=== PATIENT | male | born 1950 | race Caucasian/White ===

== ENCOUNTER 2018-03-01 14:53 | Emergency (ER) | payer OTHER, SELFPAY ==
[~2018-03-01] VITALS: Ht 170.2 cm; Wt 64.0 kg
[2018-03-01 14:59] VITALS: BP 155/69
[2018-03-01] MEDS ORDERED: [UNRECOGNIZED DRUG - REMARK] (15:06)
[2018-03-01] MEDS ORDERED: metformin (15:06)
[2018-03-01] MEDS ORDERED: SODIUM CHLORIDE 0.9% 1,000 ML IV ONE (15:10)
[2018-03-01] MEDS ORDERED: ONDANSETRON 2MG/ML, 2ML ONE (15:13)
[2018-03-01] MEDS ORDERED: SODIUM CHLORIDE FLUSH 10ML SYR IVF ONE (15:30)
[2018-03-01] MEDS ORDERED: ONDANSETRON 2MG/ML, 2ML IVPush ONE (15:30)
[2018-03-01] MEDS ORDERED: SODIUM CHLORIDE 0.9% 1,000ML IVBOLUS ONE (15:30)
[2018-03-01] MEDS ORDERED: PLEASE ENTER ALLERGIES MC SCH (15:30)
[2018-03-01 15:43] LABS: MICROSCOPIC NOT IND
[2018-03-01 15:46] LABS: CULTURE INDICATED? NO
[2018-03-01 15:49] LABS: BASOPHILS # (AUTO) 0.01 x10^3/uL (0-0.1); BASOPHILS % (AUTO) 0 % (0-1); EOSINOPHILS # (AUTO) 0.05 x10^3/uL (0-0.4); EOSINOPHILS % (AUTO) 1 % (1-7); LYMPHOCYTES # (AUTO) 0.36 x10^3/uL (1-3.4); LYMPHOCYTES % (AUTO) 8 % (22-44); MD NO; MEAN CORPUSCULAR HEMOGLOBIN 28.2 pg (27.5-34.5); MEAN CORPUSCULAR HGB CONC 32.3 g/dL (33.2-36.2); MEAN CORPUSCULAR VOLUME 87.4 fL (81-97); MEAN PLATELET VOLUME 9.2 fL (7.4-10.4); MONOCYTES # (AUTO) 0.45 x10^3/uL (0.2-0.8); MONOCYTES % (AUTO) 10 % (2-9); NEUTROPHILS % (AUTO) 81 % (42-75); PLATELET COUNT 108 x10^3/uL (130-400); RED CELL DISTRIBUTION WIDTH 17.1 % (9.4-14.8)
[2018-03-01 16:04] LABS: CHLORIDE 104 mmol/L (98-107)
[2018-03-01 16:05] LABS: ALBUMIN 2.3 g/dL (3.4-5.0); ANION GAP 8 mmol/L (5-15); CALCIUM 7.4 mg/dL (8.5-10.1)
[2018-03-01 16:07] LABS: ALANINE AMINOTRANSFERASE 36 U/L (12-78); ALKALINE PHOSPHATASE 112 U/L (45-117); TOTAL PROTEIN 7.2 g/dL (6.4-8.2)
[2018-03-01 16:22] LABS: ACETONE, SERUM Negative (Negative)
[2018-03-01] MEDS ORDERED: INSULIN REGULAR 100 UNITS/ML, 3ML VIAL SQ-INSULIN ONE (16:30)
[2018-03-01] MEDS ORDERED: INSULIN REGULAR 100 UNITS/ML, 3ML VIAL ONE ×2 (16:41→16:45)
== END 2018-03-01 18:49 | disposition home or self-care (01) ==
LOC: ED 15:20
DX: E11.65 Type 2 diabetes mellitus with hyperglycemia (principal); R11.2 Nausea with vomiting, unspecified; F31.9 Bipolar disorder, unspecified; F17.200 Nicotine dependence, unspecified, uncomplicated; Z79.84 Long term (current) use of oral hypoglycemic drugs
CPT/HCPCS: 36415; 80053; 81003; 82010; 82140; 82962; 83605; 83690; 85025; 93005; 96361; 96372; 96374; 99285; J2405; J7030